=== PATIENT | male | born 1965 | race Caucasian/White ===

== ENCOUNTER 2016-12-20 05:06 | Day surgery (SDC) | payer BC ==
[~2016-12-20 05:06] MED LIST: ACET500CAP PO; ALEVE220 MG PO; ALTACE10 MG PO; ASA5GR PO; ASAB PO; CAT1 PO; CO Q-10200 MG PO; COLCRYS0.6 MG PO; COREG6 PO; DCN100 PO; DIOVAN HCT320 MG/25 PO; DIOVAN320 MG PO; FISH OIL1200 MG PO; FLEX PO; LIPITOR20 PO; LOP50 PO; MSCONTIN PO; MULTIPLE VIT PO; MULTIVIT/MIN PO; MYLUD PO; NEUR300 PO; NEUR600 PO; NORCO1 TA2 PO; NORV10 PO; NORV5 PO; PERCOCET1 TA4 PO; PRAVACHOL40 MG PO; PREV15 PO; ULTRAM50 PO; UNISOM25 MG PO; V2 PO; VALTURN1 PO; VICODINTAB PO; ZOCOR20 PO; ZOFRAN4 PO
== END 2016-12-20 09:46 | disposition home or self-care (01) ==
LOC: SDC 05:06
PROVIDERS: Orthopaedic Surgery
PROC: 3E0R33Z Introduction of Anti-inflammatory into Spinal Canal, Percutaneous Approach (ICD-10-PCS; principal; 2016-12-20 08:00)
DX: M54.16 Radiculopathy, lumbar region (principal); E11.9 Type 2 diabetes mellitus without complications; I10 Essential (primary) hypertension; E78.00 Pure hypercholesterolemia, unspecified; F41.9 Anxiety disorder, unspecified; Z88.0 Allergy status to penicillin; Z88.5 Allergy status to narcotic agent; Z88.8 Allergy status to other drugs, medicaments and biological substances; K21.9 Gastro-esophageal reflux disease without esophagitis; Z86.010 Personal history of colon polyps; Z87.442 Personal history of urinary calculi; Z98.890 Other specified postprocedural states
CPT/HCPCS: 82962; J1040; J2250; J3010; Q9967

== ENCOUNTER 2017-01-09 04:57 | Day surgery (SDC) | payer BC | END 2017-01-09 07:45 | disposition home or self-care (01) | LOC: SDC 04:57 | PROVIDERS: Orthopaedic Surgery | PROC: 3E0R3BZ Introduction of Anesthetic Agent into Spinal Canal, Percutaneous Approach (ICD-10-PCS; 2017-01-09) | PROC: 3E0R33Z Introduction of Anti-inflammatory into Spinal Canal, Percutaneous Approach (ICD-10-PCS; principal; 2017-01-09 07:15) | DX: M54.16 Radiculopathy, lumbar region (principal); M54.5 Low back pain; Z88.0 Allergy status to penicillin; Z88.6 Allergy status to analgesic agent; Z88.8 Allergy status to other drugs, medicaments and biological substances; I10 Essential (primary) hypertension; E78.00 Pure hypercholesterolemia, unspecified; Z95.5 Presence of coronary angioplasty implant and graft; K21.9 Gastro-esophageal reflux disease without esophagitis; K44.9 Diaphragmatic hernia without obstruction or gangrene; Z90.49 Acquired absence of other specified parts of digestive tract; E11.9 Type 2 diabetes mellitus without complications; F41.9 Anxiety disorder, unspecified; Z98.890 Other specified postprocedural states; Z79.899 Other long term (current) drug therapy | CPT/HCPCS: 82962; J1040; J2250; J3010; Q9967 ==